=== PATIENT | male | born 1955 | race Caucasian/White ===

== ENCOUNTER 2021-01-13 08:04 | Outpatient (CLI) | payer BC, SELFPAY | END 2021-01-13 08:05 | disposition home or self-care (01) | LOC: ANHCOVIDVC 08:04 | PROVIDERS: PCP Family Medicine | DX: Z23 Encounter for immunization (principal) | CPT/HCPCS: 0001A; 91300 ==

== ENCOUNTER 2021-02-03 08:00 | Outpatient (CLI) | payer BC, SELFPAY | END 2021-02-03 08:01 | disposition home or self-care (01) | LOC: ANHCOVIDVC 08:00 | PROVIDERS: PCP Family Medicine | DX: Z23 Encounter for immunization (principal) | CPT/HCPCS: 0002A; 91300 ==

== ENCOUNTER 2021-02-11 08:39 | Outpatient (CLI) | payer BC, SELFPAY ==
--- NOTE | ~2021-02-11 | CT_ITS ---
EXAMINATION: CT soft tissue neck w con EXAM DATE: 02/11/2021 09:13 INDICATION: R59.0 - Localized enlarged lymph nodes . Soreness and tenderness left side of neck under jaw. TECHNIQUE: Spiral CT of the neck was performed following intravenous injection of 75 mL Omnipaque 350 . Axial, coronal and sagittal images were reviewed. The dose-length product (DLP) for this examinat ion was 621.89 mGy-cm. The exposure was tailored according to patient size (auto mA exposure control ), and iterative reconstruction (ASIR) was used as additional dose reduction technique. There is no prior study for comparison. 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 Left external jugular vein is equal caliber to the left internal jugular vein. Probably con genital appearance and unlikely related to patient's symptoms. The thyroid gland is unremarkable. The submandibular and parotid glands are symmetric. There is n o cervical lymphadenopathy. There are no masses identified. The superior mediastinum is unremarka ble. The airway is unremarkable. Parapharyngeal and pre-glottic fat planes are preserved. The o pacified vasculature is patent. Left vertebral artery is dominant. The orbits are unremarkable. Vis ualized sinuses and mastoid air cells are well aerated. Lung apices are clear. There is mild to mo derate cervical spondylosis. IMPRESSION: 1. Dilated anastomosis, varix between left internal and external jugular veins. Could be incidental congenital finding and unrelated to current symptoms. 2. Otherwise unremarkable CT neck exam, no lymphadenopathy. Reviewed, dictated and finalized at location A. IMPRESSION: 1. Dilated anastomosis, varix between left internal and external jugular veins . Could be incidental congenital finding and unrelated to current symptoms. 2. Otherwise unremarkable CT neck exam, no lymphadenopathy.
== END 2021-02-11 08:40 | disposition home or self-care (01) ==
PROVIDERS: PCP Family Medicine; Visit Provider Nurse Practitioner
DX: R59.0 Localized enlarged lymph nodes (principal)
CPT/HCPCS: 70491; Q9967

== ENCOUNTER 2022-07-03 17:37 | Emergency (ER) | payer BC, SELFPAY ==
--- NOTE | ~2022-07-03 | CT_ITS ---
EXAMINATION: CT abdomen pelvis w con DATE: 07/03/2022 18:39 INDICATION: Right lower quadrant pain TECHNIQUE: Computed tomography (CT) of the abdomen and pelvis was performed with 100 mL Omnipaque-350 intravenous contrast. Automated exposure control and iterative reconstruction technique were employe d. The dose-length product was 653.77 mGy-cm. COMPARISON: 05/04/2006. FINDINGS: Lower thorax: Minimal bibasilar scarring. Coronary artery calcification. Liver: Subcentimeter left lobe hypodensity, too small to characterize Biliary/Gallbladder: Gallbladder is normal. No bile duct dilation. Pancreas: No mass or duct dilation. Spleen: Normal. Adrenals:No mass. Kidneys: Simple midpole cyst. Bilateral hypodensities that are too small to characterize. GI tract: No small or large bowel dilation. Normal appendix. Mesentery/Peritoneum: No ascites, mass, or free air. Retroperitoneum: No mass. Pelvis: Bladder wall thickening likely secondary to outlet compromise from prostatomegaly. Soft Tissues: Soft tissues and body wall unremarkable. Bones: No acute osseous finding. IMPRESSION: No acute abdominopelvic process detected. Reviewed, dictated and finalized at location K.
--- NOTE | ~2022-07-03 | XR_ITS ---
EXAMINATION: XR chest 1V portable Exam Date/Time: 07/03/2022 17:45 CDT HISTORY: LT SIDED CP X FEW DAYS PAIN IS OFF AND ON OFTEN,WORSE TODAY Comparison: 10/29/2015. RESULT: Lines, tubes, and devices: None. Lungs and pleura: Clear. Cardiomediastinal silhouette: Stable. Other: No acute osseous or upper abdominal finding. IMPRESSION: No acute cardiopulmonary process. Reviewed, dictated and finalized at location K.
--- NOTE | 2022-07-03 17:39 | ECG_ITS ---
Measurements Intervals [place] Rate: 91 P: 70 RI: 165 QRS: 60 QRSD: 109 T: -30 QT: 346 QTc: 426 Interpretive Statements SINUS RHYTHM DELAYED PRECORDIAL R/S TRANSITION BORDERLINE ST-T WAVE ABNORMALITY- INF/LAT LEADS BASELINE ARTIFACT- I, III, AVL BORDERLINE ECG NO PREVIOUS ECG AVAILABLE FOR COMPARISON Electronically Signed On 07-03-2022 19:59:24 CDT by Aidan Bearden D.O.
[2022-07-03 17:44] VITALS: BP 147/91; PULSE 91; RESP 20; TEMP 36.4; O2SAT 95
[2022-07-03 17:53] VITALS: O2SAT 97
[2022-07-03 18:11] LABS: Basophils Absolute Auto 0.1 K/mm3 (0.0-0.1); Eosinophils Absolute Auto 0.2 K/mm3 (0-0.3); Hematocrit 48.1 % (42.0-52.0); Hemoglobin 17.2 g/dL (14.0-18.0); Immature Granulocyte Absolute 0.02 K/mm3 (0.00-0.031); Immature Granulocyte Percent A 0.2 % (0-0.5); Lymphocytes Absolute Auto 2.72 K/mm3 (0.9-3.2); Lymphocytes Percent Auto 29.9 % (18.3-44.2); Mean Corpuscular HGB Conc 35.8 g/dl (32-36); Mean Corpuscular Hemoglobin 32.3 pg (26-34); Mean Corpuscular Volume 90.4 fl (80-100); Monocytes Absolute Auto 0.9 K/mm3 (0.1-0.6); Monocytes Percent Auto 9.5 % (2.6-8.5); Neutrophils Absolute Auto 5.2 K/mm3 (1.3-6.7); Neutrophils Percent Auto 57.4 % (45.5-73.1); Platelet Count Result 219 k/mm3 (150-375); Red Blood Count 5.32 M/mm3 (4.6-6.20); Red Cell Distribution Width 12.8 % (11.5-14.5); White Blood Count 9.1 K/mm3 (4.5-10.0)
--- NOTE | 2022-07-03 18:13 | ED.GENADULT ---
HPI - General Adult General Chief complaint: Chest Pain Stated complaint: chest pain, palpitations Time Seen by Provider: 07/03/22 17:46 Source: patient and family Mode of arrival: ambulatory Limitations: no limitations History of Present Illness HPI narrative: 66 years old white male presents to the ED with intermittent pain at the right lower quadrant associated with bloating and nausea, also associated with intermittent palpitation and left chest pain. Patient reported history of palpitation for years and currently on medication for it. Also history of IBS. He denies any fever, chills, nausea, vomiting. Currently patient denied any palpitation or chest pain, just right lower quadrant pain Related Data Home Medications Medication Instructions Recorded Confirmed flecainide 50 mg tablet 50 mg PO Q12H 11/02/20 12/28/21 Allergies Allergy/AdvReac Type Severity Reaction Status Date / Time No Known Allergies Allergy Verified 07/03/22 17:57 Review of Systems Review of Systems: All systems reviewed & are unremarkable except as noted in HPI and below PMFSH Past Medical History Medical History Dyslipidemia Elevated PSA History of melanoma Irritable bowel syndrome Symptomatic PVCs Surgical History Surgical History History of melanoma excision 10/2015 - left lateral arm Family History Family History Other Family history of cardiovascular disease Social History Social History Smoking status: Never smoker Second hand tobacco smoke exposure: No Alcohol intake: current Exam Narrative: General appearance: Well-developed, well-nourished Skin: Normal color Head: Normocephalic, nontraumatic Eyes: Clear conjunctiva ENT: Oropharynx normal, ears normal, nose normal Neck: Supple, nontender Chest and respiratory: Airway patent, no respiratory distress, no accessory muscle use Heart: Regular rate/rhythm Abdomen: Soft, moderate tenderness with deep palpation of the right lower quadrant, no guarding or rebound no organomegaly, quiet bowel sounds Vascular: Normal peripheral pulses, normal capillary refill. 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, no gross motor deficit Course Vital Signs Vital signs: Vital Signs Temperature 36.4 C 07/03/22 17:44 Pulse Rate 91 07/03/22 17:44 Respiratory Rate 20 07/03/22 17:44 Blood Pressure 147/91 H 07/03/22 17:44 Pulse Oximetry 95 07/03/22 17:44 Oxygen Delivery Room Air 07/03/22 17:44 Temperature 36.4 C 07/03/22 17:44 Pulse Rate 74 07/03/22 18:23 Respiratory Rate 20 07/03/22 17:44 Blood Pressure 147/91 H 07/03/22 17:44 Pulse Oximetry 97 07/03/22 17:53 Oxygen Delivery Room Air 07/03/22 17:53 Medical Decision Making Vital Signs Vital Signs: Vital Signs Temperature 36.4 C 07/03/22 17:44 Pulse Rate 91 07/03/22 17:44 Respiratory Rate 20 07/03/22 17:44 Blood Pressure 147/91 H 07/03/22 17:44 Pulse Oximetry 95 07/03/22 17:44 Oxygen Delivery Room Air 07/03/22 17:44 Temperature 36.4 C 07/03/22 17:44 Pulse Rate 74 07/03/22 18:23 Respiratory Rate 20 07/03/22 17:44 Blood Pressure 147/91 H 07/03/22 17:44 Pulse Oximetry 97 07/03/22 17:53 Oxygen Delivery Room Air 07/03/22 17:53 Lab Data Result diagrams: 07/03/22 18:05 07/03/22 18:05 Labs: Lab Results 07/03/22 07/03/22 07/03/22 Range/Units 18:0
[2022-07-03] MEDS: SODIUM CHLORIDE 0.9% IV 1,000 ML 999 ML IV CONT (18:18)
[2022-07-03 18:23] VITALS: PULSE 74
[2022-07-03 18:26] LABS: Alanine Aminotransferase 39 U/L (6-50); Albumin Level 4.6 g/dL (3.5-5.1); Alkaline Phosphatase 90 U/L (38-126); Anion Gap 9 mmol/L (8-16); Aspartate Amino Transferase 28 U/L (17-59); Bilirubin,Total 0.7 mg/dL (0.2-1.3); Blood Urea Nitrogen 14 mg/dL (9-20); Calcium 10.1 mg/dL (8.4-10.2); Carbon Dioxide 29 mmol/L (22-30); Chloride 101 mmol/L (98-107); Estimated CRCL calculation 73 ml/min; Estimated Glomerular Filt Rate > 60; Glucose 108 mg/dL (65-110); Lipase 44 U/L (23-300); Magnesium 2.1 mg/dL (1.6-2.3); Potassium 3.7 mmol/L (3.4-5.0); Sodium 139 mmol/L (137-145)
[2022-07-03 18:31] LABS: Prothrombin Time 12.9 Seconds (11.1-14.7)
[2022-07-03 18:32] LABS: Partial Thromboplastin Time 30.4 SECONDS (22.3-36.8)
[2022-07-03 18:35] LABS: Appearance Urine Clear (Clear); Bilirubin Urine Negative (Negative); Blood Urine Negative (Negative); Color Urine Yellow (Yellow); Glucose Urine UA Negative (Negative); Ketones Urine Negative (Negative); Leukocyte Esterase Ur Trace LEU/UL (Negative); Nitrate Urine Negative (Negative); Protein Urine Negative (Negative); Specific Grav Ur <= 1.005 (1.001-1.035); pH Urine 5.5 (5.0-9.0)
[2022-07-03 18:37] LABS: Troponin I < 0.012 ng/mL (0.000-0.034)
[2022-07-03 18:45] LABS: Add Urine Microscopic? YES; RBC Urine 0-2 /hpf (0-2)
[2022-07-03 18:46] LABS: WBC Urine 0-3 /hpf (0-3)
[2022-07-03 18:47] LABS: Bacteria Urine Trace /hpf
[2022-07-03 19:19] VITALS: BP 147/92; PULSE 79; RESP 21; O2SAT 97
--- NOTE | 2022-07-03 19:19 | PC.NURSE ---
Assumed care of pt at this time. Pt alert and upright on stretcher, updated on POC
[2022-07-03 19:32] VITALS: BP 160/91; PULSE 78; RESP 18; O2SAT 99
== END 2022-07-03 19:34 | disposition home or self-care (01) ==
PROVIDERS: Emergency Medicine; Emergency Provider Emergency Medicine; PCP Family Medicine
DX: R10.31 Right lower quadrant pain (principal); R07.9 Chest pain, unspecified; R00.2 Palpitations; E78.5 Hyperlipidemia, unspecified; K58.9 Irritable bowel syndrome, unspecified; Z85.820 Personal history of malignant melanoma of skin; R94.31 Abnormal electrocardiogram [ECG] [EKG]
CPT/HCPCS: 36415; 71045; 74177; 80053; 81001; 83690; 83735; 84484; 85025; 85610; 85730; 93005; 96360; 99284; J7030; Q9967

== ENCOUNTER 2022-08-02 08:01 | Outpatient (CLI) | payer BC, SELFPAY ==
[2022-08-02 19:17] LABS: Cholesterol 185 mg/dL (0-200); HDL Direct 43 mg/dL; Triglycerides 127 mg/dL (<150)
[2022-08-02 19:29] LABS: LDL Cholesterol Direct 109 mg/dL
[2022-08-02 19:51] LABS: Vitamin D 25 Hydroxy 63.8 ng/mL
== END 2022-08-02 08:02 | disposition home or self-care (01) ==
LOC: ANHGOSHLAB 08:03
PROVIDERS: PCP Family Medicine; Visit Provider Nurse Practitioner
DX: E78.5 Hyperlipidemia, unspecified (principal); E55.9 Vitamin D deficiency, unspecified
CPT/HCPCS: 36415; 80061; 82306

== ENCOUNTER 2022-08-23 07:53 | Outpatient (CLI) | payer BC, SELFPAY ==
[2022-08-23 20:27] LABS: Prostate Specific Antigen 6.1 ng/mL (< OR = 4.0)
[2022-08-28 08:18] LABS: TTG IGA AB <1.0
[2022-08-28 08:19] LABS: Gliadin AB, IgG <1.0
== END 2022-08-23 07:54 | disposition home or self-care (01) ==
LOC: ANHGOSHLAB 07:54
PROVIDERS: PCP Family Medicine; Visit Provider Nurse Practitioner
DX: N40.0 Benign prostatic hyperplasia without lower urinary tract symptoms (principal); R00.2 Palpitations; R12 Heartburn; R14.0 Abdominal distension (gaseous); Z12.11 Encounter for screening for malignant neoplasm of colon
CPT/HCPCS: 36415; 83516; 84153; 84443

== ENCOUNTER 2022-09-08 00:24 | Day surgery (SDC) | payer BC, SELFPAY ==
[2022-08-31 09:57] VITALS: BMI 29.6
[2022-09-08 09:19] VITALS: BP 155/84; PULSE 83; RESP 16; TEMP 36.2; O2SAT 97
--- NOTE | 2022-09-08 09:22 | PM.HPGS ---
History of Present Illness History of Present Illness Consent: Risks, benefits, and alternatives have been discussed and questions answered. Patient agrees to proceed with procedure. Chief complaint: abdominal distension and heartburn Narrative: Hernandez Guevara is a 66 year old male states that over the last 6 months he has been having worsening abdominal bloating usually almost immediately after eating with visible of abdominal distension-he says when he gets this sensation he will have heart palpitations that are the most bothersome.? ? Cannot pinpoint any specific trigger foods as it occurs with anything he eats or drinks even with water.? He will have heartburn intermittently.? He does state that he tried [id number] omeprazole 20 mg daily for 2 weeks and felt like symptoms have somewhat improved.?? Review of Systems Review of Systems: All systems reviewed & are unremarkable except as noted in HPI and below PMFSH Past Medical History Medical History Abnormal radiologic findings on diagnostic imaging of renal pelvis, ureter, or bladder Colon cancer screening Dyslipidemia Elevated PSA Enlarged prostate Heart palpitations Heartburn History of melanoma Irritable bowel syndrome Obesity Postprandial abdominal bloating Symptomatic PVCs Vitamin D deficiency Surgical History Surgical History History of melanoma excision 10/2015 - left lateral arm Family History Family History Other Family history of cardiovascular disease Social History Social History Social History: Caffeine-occasional soda Smoking status: Never smoker Second hand tobacco smoke exposure: No Alcohol intake: current Drinks per week: 5 Alcohol use details: wine Substance use type: does not use Living arrangements: with family Spiritual care concerns: No Meds Home Medications and Allergies Home Medications Medication Instructions Recorded Confirmed Type flecainide 50 mg tablet 50 mg PO Q12H 11/02/20 08/31/22 History cholecalciferol (vitamin D3) 1,250 1,250 mcg PO WEEKLY #14 caps 01/02/22 08/31/22 Rx mcg (50,000 unit) capsule atorvastatin 40 mg tablet (Lipitor) 40 mg PO DAILY #90 tabs 07/26/22 08/31/22 Rx omeprazole 40 mg capsule,delayed 40 mg PO DAILY #30 caps 08/11/22 08/31/22 Rx release Allergies Allergy/AdvReac Type Severity Reaction Status Date / Time No Known Allergies Allergy Verified 09/08/22 09:15 Vital Signs Vital Signs - 24 hr 09/08/22 09:19 Temperature 36.2 C L Pulse Rate 83 Respiratory Rate 16 Blood Pressure 155/84 H Pulse Oximetry 97 Oxygen Delivery Room Air Exam Const: General: alert Orientation/consciousness: patient oriented x3 Resp: Auscultation: clear to auscultation bilaterally Cardio: Rhythm: regular rhythm GI: GI Palp: Yes Soft to palpation and No Tenderness to palpation present (GI) Neuro: General: patient oriented x3 Assessment and Plan Assessment and plan (1) Postprandial abdominal bloating: Code(s): R14.0 - Abdominal distension (gaseous) Status: Acute Assessment and Plan: EGD with possible biopsy or dilatation or cautery.
[2022-09-08] MEDS: LACTATED RINGERS 1,000 ML 150 ML IV CONT (09:26)
--- NOTE | 2022-09-08 09:35 | WPDANESEPPF ---
Anes - Initial Pre Proc Eval Procedure: Operation Date: 09/08/22 10:30 Proposed Procedures p Esophagogastroduodenoscopy EGD - Mickey Sullivan MD Date/Time: 09/08/22 09:35 Surgeon: Mickey Sullivan MD Pre Op Diagnosis: abdominal distension and heartburn Patient Data Age: 66 Gender: M Height: 1.75 m Weight: 89.9 kg Last Vital Signs Temp 36.2 C L 09/08/22 09:19 Pulse 83 09/08/22 09:19 Resp 16 09/08/22 09:19 BP 155/84 H 09/08/22 09:19 Pulse Ox 97 09/08/22 09:19 O2 Del Method Room Air 09/08/22 09:19 Allergies Allergy/AdvReac Type Severity Reaction Status Date / Time No Known Allergies Allergy Verified 09/08/22 09:15 Home Medications Medication Instructions Recorded Confirmed Type flecainide 50 mg tablet 50 mg PO Q12H 11/02/20 09/08/22 History cholecalciferol (vitamin D3) 1,250 1,250 mcg PO WEEKLY #14 caps 01/02/22 09/08/22 Rx mcg (50,000 unit) capsule atorvastatin 40 mg tablet (Lipitor) 40 mg PO DAILY #90 tabs 07/26/22 09/08/22 Rx omeprazole 40 mg capsule,delayed 40 mg PO DAILY #30 caps 08/11/22 09/08/22 Rx release Patient hx anesthesia problems: none Family hx anesthesia problems: none Results Review: All pre-operative results and documents have been reviewed as part of the pre-operative evaluation. [facility] Past Medical History Medical History Abnormal radiologic findings on diagnostic imaging of renal pelvis, ureter, or bladder Colon cancer screening Dyslipidemia Elevated PSA Enlarged prostate Heart palpitations Heartburn History of melanoma Irritable bowel syndrome Obesity Postprandial abdominal bloating Symptomatic PVCs Vitamin D deficiency Surgical History Surgical History History of melanoma excision 10/2015 - left lateral arm Family History Family History Other Family history of cardiovascular disease Social History Social History Social History: Caffeine-occasional soda Smoking status: Never smoker Second hand tobacco smoke exposure: No Alcohol intake: current Drinks per week: 5 Alcohol use details: wine Substance use type: does not use Living arrangements: with family Spiritual care concerns: No Anes - Eval Final PreProcedure Day of Procedure 09/08/22 09:35 Patient weight: overweight Heart: regular rate and rhythm Lungs: clear to auscultation Airway: Mallampati scale class II Neurological: alert and oriented Last oral intake: >/= 8 hours ASA classification: II Emergent: no Anesthetic plan: proceed Anesthesia type and monitoring: general GIVS and standard monitoring Results Review: All pre-operative results and documents have been reviewed as part of the pre-operative evaluation. Informed Consent: The patient's anesthetic plan and its attendant risks and benefits were discussed with the patient/family/POA. Questions were solicited and answers provided to the satisfaction of the patient/family/POA.
[2022-09-08] MEDS: BENZOCAINE (*SP) 60 ML SPRAY CAN (HURRICAINE) 1 SPRAY MUCOUS MEM (09:54)
[2022-09-08 10:03] VITALS: BP 129/82; PULSE 74; RESP 16; O2SAT 100
[2022-09-08 10:13] VITALS: BP 135/91; PULSE 72; RESP 16; O2SAT 99
== END 2022-09-08 10:38 | disposition home or self-care (01) ==
PROVIDERS: PCP Family Medicine; Visit Provider Internal Medicine Gastroenterology
PROC: 0DJ08ZZ Inspection of Upper Intestinal Tract, Via Natural or Artificial Opening Endoscopic (ICD-10-PCS; CPT 43235; principal; 2022-09-08 10:30)
DX: R14.0 Abdominal distension (gaseous) (principal); E78.5 Hyperlipidemia, unspecified; N40.0 Benign prostatic hyperplasia without lower urinary tract symptoms; K58.9 Irritable bowel syndrome, unspecified; E55.9 Vitamin D deficiency, unspecified; Z85.820 Personal history of malignant melanoma of skin
CPT/HCPCS: 43239; 87081; J2704; J7120

== ENCOUNTER 2023-01-26 08:28 | Outpatient (CLI) | payer BC, SELFPAY ==
[2023-01-26 18:47] LABS: Basophils Absolute Auto 0.1 K/mm3 (0.0-0.1); Basophils Percent Auto 1.1 % (0.2-1.2); Eosinophils Absolute Auto 0.3 K/mm3 (0-0.3); Eosinophils Percent Auto 3.4 % (0-4.4); Hematocrit 50.1 % (42.0-52.0); Immature Granulocyte Absolute 0.03 K/mm3 (0.00-0.031); Immature Granulocyte Percent A 0.4 % (0-0.5); Lymphocytes Absolute Auto 2.88 K/mm3 (0.9-3.2); Lymphocytes Percent Auto 36.6 % (18.3-44.2); Mean Corpuscular HGB Conc 33.9 g/dl (32-36); Mean Corpuscular Hemoglobin 31.5 pg (26-34); Mean Corpuscular Volume 92.9 fl (80-100); Mean Platelet Volume 10.3 fl (7.4-10.4); Monocytes Absolute Auto 0.8 K/mm3 (0.1-0.6); Monocytes Percent Auto 10.2 % (2.6-8.5); Neutrophils Absolute Auto 3.8 K/mm3 (1.3-6.7); Neutrophils Percent Auto 48.3 % (45.5-73.1); Platelet Count Result 215 k/mm3 (150-375); Red Blood Count 5.39 M/mm3 (4.6-6.20); Red Cell Distribution Width 12.9 % (11.5-14.5); White Blood Count 7.9 K/mm3 (4.5-10.0)
[2023-01-26 21:23] LABS: Alanine Aminotransferase 46 U/L (6-50); Albumin Level 4.8 g/dL (3.5-5.1); Alkaline Phosphatase 98 U/L (38-126); Anion Gap 13 mmol/L (8-16); Aspartate Amino Transferase 31 U/L (17-59); Bilirubin,Total 0.8 mg/dL (0.2-1.3); Blood Urea Nitrogen 14 mg/dL (9-20); Calcium 10.3 mg/dL (8.4-10.2); Carbon Dioxide 27 mmol/L (22-30); Chloride 103 mmol/L (98-107); Cholesterol 213 mg/dL (0-200); Estimated Glomerular Filt Rate > 60; Glucose 72 mg/dL (65-110); HDL Direct 49 mg/dL; Potassium 4.7 mmol/L (3.4-5.0); Sodium 143 mmol/L (137-145); Triglycerides 123 mg/dL (<150)
[2023-01-26 21:34] LABS: LDL Cholesterol Direct 112 mg/dL
== END 2023-01-26 08:29 | disposition home or self-care (01) ==
LOC: ANHGOSHLAB 08:28
PROVIDERS: PCP Family Medicine; Visit Provider Nurse Practitioner
DX: E78.5 Hyperlipidemia, unspecified (principal); E55.9 Vitamin D deficiency, unspecified
CPT/HCPCS: 36415; 80053; 80061; 82306; 85025

== ENCOUNTER 2023-10-15 15:49 | Outpatient (CLI) | payer BC, SELFPAY ==
--- NOTE | ~2023-10-15 | CT_ITS ---
EXAMINATION: CT abdomen pelvis wo con DATE: 10/15/2023 16:12 INDICATION: Right flank pain TECHNIQUE: Computed tomography (CT) of the abdomen and pelvis was performed without intravenous contr ast. The dose-length product was 674.73 mGy-cm. Automated exposure control and iterative reconstructi on technique were employed. COMPARISON: CT dated 07/03/2022. FINDINGS: There is bilateral lower lobe atelectasis. Heart size normal. Small hiatal hernia. No signi ficant pleural or pericardial effusion. Enlarged prostate gland. Normal appendix. The liver, spleen, pancreas, adrenal glands are unremarkable. There is an accessory splenule. Right k idney is unremarkable. There is a left renal cyst measuring 3.3 cm. There is atherosclerosis without aneurysm. There is increase number of mesenteric and retroperitoneal lymph nodes, likely reactive. Ga llbladder is contracted. No free air or free fluid. No focal lytic or blastic lesions. Mild lumbar sp ondylosis. IMPRESSION: 1. Enlarged prostate gland. 2: No acute abdominal abnormality. No findings to account for patient's symptoms. 3: Mildly increased number of mesenteric and retroperitoneal lymph nodes, likely reactive. Reviewed, dictated and finalized at location A. [facility] IMPRESSION: 1. Enlarged prostate gland. 2: No acute abdominal abnormality. No findings to account for patient's symptom s. 3: Mildly increased number of mesenteric and retroperitoneal lymph nodes, likel y reactive.
== END 2023-10-15 15:50 | disposition home or self-care (01) ==
PROVIDERS: PCP Family Medicine
DX: R10.9 Unspecified abdominal pain (principal); N40.0 Benign prostatic hyperplasia without lower urinary tract symptoms
CPT/HCPCS: 74176

== ENCOUNTER 2024-06-19 10:17 | Outpatient (CLI) | payer MEDICARE, SELFPAY ==
[2024-06-19 13:33] LABS: Basophils Absolute Auto 0.1 K/mm3 (0.0-0.1); Basophils Percent Auto 1.1 % (0.2-1.2); Eosinophils Absolute Auto 0.2 K/mm3 (0-0.3); Eosinophils Percent Auto 2.9 % (0-4.4); Hematocrit 49.8 % (42.0-52.0); Hemoglobin 17.3 g/dL (14.0-18.0); Immature Granulocyte Absolute 0.02 K/mm3 (0.00-0.031); Immature Granulocyte Percent A 0.3 % (0-0.5); Lymphocytes Absolute Auto 2.97 K/mm3 (0.9-3.2); Lymphocytes Percent Auto 37.5 % (18.3-44.2); Mean Corpuscular HGB Conc 34.7 g/dl (32-36); Mean Corpuscular Hemoglobin 32.6 pg (26-34); Mean Corpuscular Volume 93.8 fl (80-100); Mean Platelet Volume 10.5 fl (7.4-10.4); Monocytes Absolute Auto 0.7 K/mm3 (0.1-0.6); Monocytes Percent Auto 9.2 % (2.6-8.5); Neutrophils Absolute Auto 3.9 K/mm3 (1.3-6.7); Platelet Count Result 241 k/mm3 (150-375); Red Blood Count 5.31 M/mm3 (4.6-6.20); White Blood Count 7.9 K/mm3 (4.5-10.0)
[2024-06-19 14:11] LABS: Alanine Aminotransferase 43 U/L (6-50); Albumin Level 4.6 g/dL (3.5-5.1); Alkaline Phosphatase 86 U/L (38-126); Anion Gap 9 mmol/L (4-12); Aspartate Amino Transferase 47 U/L (17-59); Bilirubin,Total 0.9 mg/dL (0.2-1.3); Blood Urea Nitrogen 16 mg/dL (9-20); Calcium 9.6 mg/dL (8.4-10.2); Carbon Dioxide 31 mmol/L (22-30); Chloride 100 mmol/L (98-107); Cholesterol 172 mg/dL (0-200); Estimated Glomerular Filt Rate > 60; Glucose 89 mg/dL (65-110); HDL Direct 49 mg/dL; Potassium 4.6 mmol/L (3.4-5.0); Sodium 140 mmol/L (137-145); Triglycerides 97 mg/dL (<150)
[2024-06-19 14:22] LABS: LDL Cholesterol Direct 92 mg/dL
[2024-06-19 18:02] LABS: Vitamin D 25 Hydroxy 14.4 ng/mL
== END 2024-06-19 10:18 | disposition home or self-care (01) ==
PROVIDERS: PCP Family Medicine; Visit Provider Nurse Practitioner Family
DX: E78.5 Hyperlipidemia, unspecified (principal); E55.9 Vitamin D deficiency, unspecified; R00.2 Palpitations
CPT/HCPCS: 36415; 80053; 80061; 82306; 84443; 85025

== ENCOUNTER 2024-09-19 09:45 | Emergency (ER) | payer MEDICARE, SELFPAY ==
--- NOTE | 2024-09-19 09:50 | ECG_ITS ---
Test Date: 2024-09-19 09:58:37 Measurements Intervals [place] Rate: 111 P: 73 TN: 171 QRS: 62 QRSD: 110 T: -13 QT: 341 QTc: 464 Interpretive Statements SINUS TACHYCARDIA WITH OCCASIONAL SUPRAVENTRICULAR PREMATURE COMPLEXES POSSIBLE LEFT ATRIAL ENLARGEMENT DELAYED PRECORDIAL R/S TRANSITION MINNIMAL Q WAVES- INFERIOR LEADS BORDERLINE ST-T WAVE ABNORMALITY- INF/LAT LEADS BASELINE ARTIFACT- I, II, III, AVR, AVL, AVF, V1 ABNORMAL ECG No previous ECG available for comparison Electronically Signed On 09-19-2024 10:03:55 IT SOFTWARE ENGINEER by Aidan Bearden D.O.
--- NOTE | 2024-09-19 09:51 | ED.ARRPALP ---
HPI - Arrhythmia/Palpitations General Chief Complaint: Nausea/Vomiting/Diarrhea Stated Complaint: heart racing Time Seen by Provider: 09/19/24 09:50 Source: patient Mode of arrival: ambulatory Limitations: no limitations History of Present Illness HPI narrative: Hernandez is a 68-year-old male patient presenting to the clinic today with complaints his heart racing and nausea since this morning. He reports he was drinking alcohol last night and became intoxicated. He drank approximately 10 oz of bourbon. Throughout the night and this morning he has been vomiting and started having diarrhea. Has been dry heaving this morning with very little emesis. Any time that he gets an upset stomach he develops heart palpitations. He denies any chest pain but has slight shortness of breath. Patient appear anxious. Related Data Allergies Allergy/AdvReac Type Severity Reaction Status Date / Time No Known Allergies Allergy Verified 09/19/24 10:00 Review of Systems Review of Systems: Pertinent positives per HPI. Patient denies any fever, chills, rash, headache, visual changes, dizziness, cough, runny nose, sore throat, chest pain, palpitations, constipation, abdominal pain, or any urinary issues. [facility] Past Medical History Medical History Abnormal radiologic findings on diagnostic imaging of renal pelvis, ureter, or bladder Chronic mid back pain Dyslipidemia Eczema of lower extremity Elevated PSA Enlarged prostate GERD (gastroesophageal reflux disease) Heart palpitations Heartburn History of melanoma (~2015) Irritable bowel syndrome Obesity Postprandial abdominal bloating Symptomatic PVCs Vitamin D deficiency Surgical History Surgical History History of melanoma excision 10/2015 - left lateral arm Family History Family History Other Family history of cardiovascular disease Social History Social History Social History: Caffeine-occasional soda Smoking status: Never smoker Second hand tobacco smoke exposure: No Alcohol intake: current Drinks per week: 5 Alcohol use details: wine Substance use type: does not use Lack of Transportation: No Lack of Food: Never True Current Housing: I Have Housing Concerned About Future Housing: No Difficulty Paying Gas/Electric Bills: No Difficulty Paying for Meds: No Currently Unemployed: No Education: Master's Degree or Higher Difficulty w/ Childcare or Family Care: No Living arrangements: with family Spiritual care concerns: No Comments At the time of my signature, I reviewed and agree with the nursing past medical, surgical, social, and family history. There is no relevant family history pertinent to the patient complaint. Exam Narrative: General: Well-developed, well nourished, appears anxious/acutely ill-appearing Head: Normocephalic, atraumatic Eyes: Pupils equally round and reactive to light bilaterally, EOM intact, sclera and conjunctive clear, no discharge, lids normal Ears: TMs intact and clear, ear canals clear, no drainage, grossly hearing normal. Nose: Nares patent, no discharge, no inflammation, no sinus tenderness. Mouth: Oropharynx without lesions or masses, good dentition, MM dry. Neck: Supple, trachea midline, no enlargement of anterior or posterior cervical nodes, no thyroid masses or goiter palpable. Cardio: Tachycardic rate and rhythm, s1 and s2 normal, no murmur appreciated. Resp: Clear to auscultation bilaterally anteriorly and posteriorly, no rhonchi, rales, wheezing or rubs Extremities: No deformity, no edema, no cyanosis, capillary refill less than 2 seconds, peripheral pulses palpable and strong. Integumentary: [place], warm, and dry, intact without lesion, no rashes. Abdomen: Soft, pliable, bowel sounds present in all quadrants, non-tender to palpation, no organomegly, no CVAT tenderness. Course Course Emergency Course: Portions of this record may have been created with voice recognition software. Level of Care: Express Care Visit Vital Signs Vital signs: Vital Signs Pulse Rate 111 H 09/19/24 10:01 Respiratory Rate 20 09/19/24 10:01 Blood Pressure 157/105 H 09/19/24 10:01 Pulse Oximetry 99 09/19/24 10:01 Temperature 36.8 C 09/19/24 10:05 Pulse Rate 96 09/19/24 11:38 Respiratory Rate 20 09/19/24 10:01 Blood Pressure 161/98 H 09/19/24 10:05 Pulse Oximetry 99 09/19/24 10:01 Vital signs reviewed MDM - Arrhythmia/Palpitations MDM Narrative Medical decision making narrative: At the time of visit patient is resting comfortably on the exam table. Patient appears to be nontoxic. EKG: EKG shows sinus tachycardia with occasional PVC. Heart rate is 111. No ST elevation or depression noted. Medications: Benadryl 50 mg and Zofran 4 mg ODT given in the clinic today Plan: Patient reports improvement of his symptoms after medications were given any had a p.o. challenge. Heart rate is 96 beats per minute and the palpitations have improved. Patient would like to be discharged home. Will send in prescription for Zofran. Supportive measures were discussed with the patient and they voiced understanding discharge instructions and agrees to treatment plan. Return precautions reviewed Differential Diagnosis Differential diagnosis: Likely palpitations, anxiety, sinus tachycardia, artial fibrillation, artial flutter, ventricular premature beats, supraventricular tachycardia and other (Dehydration) ECG Data EKG #1: Attestation: I personally reviewed and interpreted this ECG as follows: ECG completion date: 09/19/24 ECG completion time: 09:58 Prior ECG tracings: not available for review Interpretation: EKG shows sinus tachycardia with occasional PVC. Heart rates 111. No ST elevation or depression noted. Does show possible left atrial enlargement with a probable inferior myocardial infarction of indeterminate age. DE interval 171 milliseconds, QRS durations 110 milliseconds, QT-QTc 341-406 milliseconds, P-R-T axis is 73 62 -13 Discharge Plan Discharge Clinical Impression: Symptomatic PVCs, Heart palpitations, Acute nausea with nonbilious vomiting, Mild dehydration Patient Disposition: Home, Self-Care Condition: Stable Instructions: Antibiotic Form, Heart Palpitations (ED), Dehydration (ED), Acute Nausea and Vomiting (ED) Additional Instructions: Benadryl 50 mg IM and Zofran 4 mg ODT given in the clinic today We will send prescription for Zofran to the pharmacy Increase fluids and stay well hydrated Tylenol/motrin for pain/fever BRAT diet for diarrhea Clear liquids x 24 hours then advance as tolerated for nausea/vomiting Go to the ED if you develop a worsening in your condition- high fever not controlled by Tylenol or Motrin, dehydration, weakness, lethargy, shortness of breath, or chest pain. Follow up with your PCP in 3-5 days if symptoms persist. Prescriptions: New ondansetron 4 mg tablet,disintegrating 4 mg PO Q6H PRN (Reason: nausea and vomiting) 3 Days Qty: 12 0RF No Action amitriptyline 25 mg tablet 25 mg PO QHS Qty: 90 3RF flecainide 50 mg tablet 50 mg PO Q12H Qty: 90 0RF atorvastatin [Lipitor] 40 mg tablet 40 mg PO QHS Qty: 90 1RF Follow-up/Referrals: Adrien Richards MD [Primary Care Provider] - Time of Disposition: 11:40 Quality NIHSS Nursing Documentation ED NIHSS nursing documentation: reviewed/agree
[2024-09-19 10:01] VITALS: BP 157/105; PULSE 111; RESP 20; O2SAT 99
[2024-09-19 10:05] VITALS: BP 161/98; TEMP 36.8
[2024-09-19] MEDS: diphenhydrAMINE HCl INJ 50 MG/ML VIAL IM (10:12)
[2024-09-19] MEDS: ONDANSETRON HCL ODT 4 MG TABLET SUBLINGUAL (10:12)
[2024-09-19 10:43] VITALS: PULSE 101
[2024-09-19 11:38] VITALS: PULSE 96
== END 2024-09-19 11:45 | disposition home or self-care (01) ==
PROVIDERS: Emergency Provider Nurse Practitioner Family; PCP Family Medicine
DX: R00.2 Palpitations (principal); R11.2 Nausea with vomiting, unspecified; E86.0 Dehydration
CPT/HCPCS: 93005; 96372; 99213; A9270; G0463; J1200

== ENCOUNTER 2025-06-19 09:00 | Outpatient (CLI) | payer MEDICARE, SELFPAY ==
--- OUTSIDE RECORDS SUMMARY | 2025-06-19 09:03 | XMS_ITS | Clinical Summary ---
Author Organization [facility] Address [address] [place] [address] Care Team Providers Care Route Sales Delivery Driver Name Role Phone Unavailable Primary Care Provider Unavailabl e Source Comments [facility],non-owned Affiliates and Associated Physician Practices is amultiple site organization consisting of ambulatory clinics and hospital sitesin [place], [place], [place] and [place]. This disclosure is being madepursuant to the Care Everywhere program and may not contain all information available regarding this patient. 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 Gender Identity Not on file Sexual Orientation Not on file Plan of Treatment Health Maintenance Due Date Last Done Comments COLOGUARD (AGES 45-75) - COL ON CA SCREENING 1957 COLON MONITORING 1957 COLONOSCOPY - COLON CA SCREENING 1957 CT COLONOGRAPHY - COLON CA SCREENING 1957 Colorectal Cancer Screening 1957 FIT - COLON CA SCREENING 1957 FLEX SIG - COLON CA SCREENING 1957 LIPID TESTING 1957 HEPATITIS C SCREENING 11/13/1975 DTAP/TDAP/TD VACCINES (1 - Tdap) 1976 PNEUMOCOCCAL VACCINE 50+ (1 of 1 - PCV) 2007 ZOSTER VACCINE (1 of 2) 2007 COVID-19 VACCINE ( - 2023-2 5 season) 2024 DEPRESSION SCREENING 10/29/2024 MEDICARE AWV CALENDAR YEAR 2024 INFLUENZA VACCINE (#1) 2025 Respiratory Syncytial Virus (RSV) Vaccine Pt: or over 60 yrs (1 - 1-dose 75+ series) 2032 HEPATITIS B VACCINE Aged Out No longe r eligible based on patient's age to complete this topic HIB VACCINE Aged Out No longer eligi ble based on patient's age to complete this topic HPV VACCINE Aged Out No longer eligi ble based on patient's age to complete this topic MENINGOCOCCAL (Group B) VACC INE SHARED DECISION-MAKING Aged Out No longer eligibl e based on patient's age to complete this topic MENINGOCOCCAL GROUPS A/C/Y/W VACCINE Aged Out No longer eligible b ased on patient's age to complete this topic Insurance [facility] AETNA MEDICARE ADV SELF PAY NO INSURANCE Member Subscriber Plan / Payer (Ef fective for All Dates) Name:Hernandez Guevara Member ID:Not on file Relation to Subscriber:Not on file Name:HERNANDEZ GUEVARA Subscriber ID:Not on file (Home) Address: [place] [address] Payer ID:Not on file Group ID:Not on file Type:Self Pay Address: [place], [place]
--- OUTSIDE RECORDS SUMMARY | 2025-06-19 09:03 | XMS_ITS | Encounter Summary ---
Author Organization [facility] Address [address] [place] [address] Care Team Providers Care Bridge Ironworker Name Role Phone Unavailable Primary Care Provider Unavailabl e Encounter Details Date Type Department Care Team (Late st Contact Info) Description 06/17/2019 Lab Requisition [facility] [address] [place] [phone] Nicholas Hernandez MD [address] [place] [address] Social History Tobacco Use Types Packs/Day Years Used Date Smoking Tobacco: Never Assessed Sex and Gender Information Value Date Recorded Sex Assigned at Not on file 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 Gender Identity Not on file Sexual Orientation Not on file documented as of this encounter Plan of Treatment Not on file documented as of this encounter Procedures Procedure Name Priority Date/Time Associated Diagnosis Comments DERMATOPATHOLOGY Routine 06/16/2019 12:0 0 AM CDT documented in this encounter Results * DERMATOPATHOLOGY (06/16/2019 12:00 AM CDT) Case Report Dermatopathology Report Case: [id number] Authorizing Provider: Nicholas Hernandez MD Collected: 06/16/2019 12:00 AM Ordering Location: [facility] Received: 06/17/2019 10:45 AM Pathologist: Valentina Frazier MD Specimen: Skin, left great toenail 9 3:56 PM CDT DERMATOPATHOLOGY LABORATORY Final Diagnosis Specimen A. SKIN, left great toenail: ONYCHOMYCOSIS (B35.1) 9 3:56 PM CDT DERMATOPATHOLOGY LABORATORY at 1556 CDT Clinical History R/O onychomycosis. 3:56 PM CDT DERMATOPATHOLOGY LABORATORY Gross Description Specimen A: Received is one formalin filled container labeled with the patient's name and designated left great toenail. The specimen consists of a nail clipping measuring [id number]. 3:56 PM CDT DERMATOPATHOLOGY LABORATORY Microscopic Description Specimen A. SKIN, left great toenail: Sections show nail plate. Fungal hyphae are present on Periodic acid-Román (PAS) stained sections. 3:56 PM CDT DERMATOPATHOLOGY LABORATORY Disclaimer An external and internal positive and negative controls are appropriate for the histochemical, immunohistochemical and immunofluorescence stain(s) in this case (if any), except where stated explicitly. The performance characteristics of the stain(s) cited in this report were developed and its performance characteristic determined by the Dermatopathology Laboratory at [facility], directed by Dr. Vannessa Frazier. These tests need not be, and therefore are not, approved by the [place] Food and Drug Administration. The tests are used for clinical purposes. Billing Codes Specimen Charges Stain Charges 08319 1 10108 1 3:56 PM CDT DERMATOPATHOLOGY LABORATORY Embedded Images 3:56 PM CDT DERMATOPATHOLOGY LABORATORY Pathology/Cytolog y TISSUE SPECIMEN FROM SKIN / Unknown 06/16/2019 06/17/2019 10:45 AM CDT Nicholas Hernandez MD LAB - PATHOLOGY/CYTOLOGY ORD ERABLES Final Result DERMATOPATHOLOGY LABORATORY [facility] - Department of Dermatology [address] [place] [address], 5th Floor Lab [address] [phone] documented in this encounter Visit Diagnoses Not on filedocumented in this encounter
--- OUTSIDE RECORDS SUMMARY | 2025-06-19 09:03 | XMS_ITS | Clinical Summary ---
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 Gender Identity Not on file Sexual Orientation Not on file Plan of Treatment Health Maintenance Due Date Last Done Comments DTAP/TDAP/TD VACCINES (1 - Tdap) 1976 FIT-DNA Q 3 years 2002 FIT/FOBT Q 1 year 2002 Flex Sig/CT Colonography Q 5 years 2002 PNEUMOCOCCAL VACCINE 50+ YEARS (1 of 1 - PCV) 11/17/19 08 ZOSTER VACCINE (1 of 2) 2007 INFLUENZA VACCINE (#1) 2025 COLORECTAL SCREENING 08/11/2026 08/11/2016 Colorectal Cancer Screening 08/11/2026 RSV VACCINE (60+ or ) (1 - 1-dose 75+ series) 2032 Care Teams Power Shovel Operator Helper Relationship Specialty Start Date End Date Amado Silverio MD [address] [place] [phone] PCP - General Family Practice 06/10/19
--- OUTSIDE RECORDS SUMMARY | 2025-06-19 09:03 | XMS_ITS | Encounter Summary ---
Author Organization [facility] Address [address] [place] [address] Care Team Providers Care Customer Engineer Name Role Phone Amado Silverio Primary Care Provider [phone] Amado Silverio Primary Care Provider [phone] Ian Richards MD Primary Care Provider Amado Silverio Unavailable [phone] Nicholas Hernandez MD Unavailable [phone] Encounter Details Date Type Department Care Team (Late st Contact Info) Description 12/06/2016 Orders Only [facility] ProviderDev MD [address] [place] [address] Social History Tobacco Use Types Packs/Day Years Used Date Smoking Tobacco: Never Alcohol Use Standard Drinks/Week Comments Yes 0 (1 standard drink = 0.6 oz pur e alcohol) Sex and Gender Information Value Date Recorded Sex Assigned at Not on file 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 us Historical Provider [facility] SAM RASHID Final Result documented in this encounter Visit Diagnoses Not on filedocumented in this encounter Care Teams Customer Engineer Relationship Specialty Start Date End Date Amado Silverio [address] [place] [address] PCP - General 01/26/17 04/01/18 Amado Silverio [address] [place] [place] [address] PCP - General 06/30/16 01/25/17 Ian Richards MD [address] [place] [address] PCP - General Family Practice 04/02/18 Amado Silverio [address] [place] [address] Consulting Physician Internal Medicine 05/08/18 Nicholas Hernandez MD [address] [place] [address] Referring Physician Dermatology 05/08/18 documented as of this encounter
--- OUTSIDE RECORDS SUMMARY | 2025-06-19 09:03 | XMS_ITS | Clinical Summary ---
Author Organization [facility] [address] Address [address] [place] [address] Care Team Providers Care Supervisor Shipping Name Role Phone Ian Richards MD Primary Care Provider Amado Silverio Unavailable [phone] Nicholas Hernandez MD Unavailable [phone] Allergies No known active allergies Medications atorvastatin (LIPITOR) 40 mg tablet Take 1 tablet (40 mg total) by mouth daily 2 Active amitriptyline (ELAVIL) 25 mg tablet Take 1 tablet (25 mg total) by mouth nightly 3 Active flecainide (TAMBOCOR) 50 mg tabletIndications :Atrial premature contractions Take 1 tablet (50 mg total) by mouth 2 (two) times a day 180 tablet 3 5 Active Active Problems Problem Noted Date Diagnosed Date 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/2023 Elevated blood pressure reading 02/15/2022 Family history of cerebral aneurysm 02/15/2022 Atypical chest pain 02/02/2021 Neck pain 02/02/2021 Medication monitoring encounter 11/05/2018 Atrial premature contractions 11/19/2017 PVC (premature ventricular contraction) 05/31/20 17 Anxiety 03/27/2017 Overview (03/30/2017): Anxiety Pure hypercholesterolemia 09/08/2016 Overview (02/01/2017): Hyperlipidemia, unspecified hyperlipidemia type Family history of sudden 09/08/2016 Overview (02/01/2017): Family history of sudden in brother Palpitations 09/08/2016 Overview (02/01/2017): Palpitations History of insertion of T-tube into biliary trac t 02/10/2016 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 Encounters Date Type Department Care Team Description 06/04/2025 8:30 AM CDT Office Visit [facility] Cardiology [address] [place] [phone] Bonnie Pierce NP Encounter for monitoring flecainide therapy (Primary Dx); Atrial premature contractions; Pure hypercholesterolemia from Last 3 Months Surgical History Surgery Date Site/Laterality Comments US UNLISTED PROCEDURE LYMPH SYSTEM 11/26/2015 N/A Medical History Medical History Date Comments Hypercholesterolemia High choles terol; Comments: TYW 09/08/2016 - Irritable bowel syndrome Irritab le bowel disease Hx Other Medical Skin CA (stage 2) Oct 2015; Comments: TYW 09/08/2016 - ELU 09/08/2016 -melanoma Cancer (HCC) Melanoma - surgery i n October 2015 Family History Medical History Relation Name Comments Heart attack Brother Juarez Other Brother Juarez Unknow (Sudden) ; ELU 09/08/2016 -Previously healthy. Sudden . Anuerysm Father Gene Aneurysm; ELU 1 11/08/2015 -Brain aneurysm. 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 Gender Identity Male 06/30/2020 10:58 AM CDT Sexual Orientation Straight 06/30/2020 10 :59 AM CDT Obstetrics History Last Filed Vital Signs Vital Sign Reading Time Taken Comments Blood Pressure 132/80 06/04/2025 8:45 AM CDT Pulse 85 06/04/2025 8:18 AM CDT Temperature 35.7 C (96.3 F) 05/10/2018 2:08 PM CDT Respiratory Rate 12 05/19/2019 10:30 AM CDT Oxygen Saturation 96% 06/04/2025 8:18 AM CDT Inhaled Oxygen Concentration - - Weight 91.2 kg (201 lb) 06/04/2025 8:18 AM CDT Height 175.3 cm (5' 9) 06/04/2025 8:18 AM CDT Body Mass Index 29.68 06/04/2025 8:18 AM CDT Plan of Treatment Health Maintenance Due Date Last Done Comments Colon Cancer Screening-Colonoscopy 1957 Depression Screening 1957 Fall Risk Assessment 1957 Hepatitis C Screening 1957 Prostate Cancer Screening-PSA 1957 Hepatitis B Screening 1975 Pneumococcal vaccine 65+ (1 of 1 - PCV) 2007 Zoster Vaccine (1 of 2) 2007 Well Visit 65+ 2022 Influenza Vaccine (#1) 2025 DTaP/Tdap/Td Vaccine (3 - Td or Tdap) 05/23/2026, 05/27/2006 Procedures Procedure Name Priority Date/Time Associated Diagnosis Comments ECG 12-LEAD Routine 06/04/2025 8:27 AM CDT Encounter for monitoring flecainide therapy from Last 3 Months Results * ECG 12 lead (06/04/2025 8:27 AM CDT) 06/04/2025 8:27 AM CDT Bonnie Pierce NP ECG ORDERABLES Final Res ult from Last 3 Months Insurance [employer] AETNA MEDICARE Care Teams Supervisor Shipping Relationship Specialty Start Date End Date Ian Richards MD PCP - General Family Practice 04/02/18 Amado Silverio [address] [place] [address] Consulting Physician Internal Medicine 05/08/18 Nicholas Hernandez MD [address] [place] [address] Referring Physician Dermatology 05/08/18
--- OUTSIDE RECORDS SUMMARY | 2025-06-19 09:03 | XMS_ITS | Encounter Summary ---
Author Organization [facility] Address [address] [place] [address] Care Team Providers Care Panel Monitor Name Role Phone Unavailable Primary Care Provider Unavailabl e Encounter Details Date Type Department Care Team (Late st Contact Info) Description 07/28/2020 Lab Requisition [facility] Derm[facility] Lab [address] [place] [phone] Nicholas Hernandez MD [address] [place] [address] Social History Tobacco Use Types Packs/Day Years Used Date Smoking Tobacco: Never Assessed Sex and Gender Information Value Date Recorded Sex Assigned at Not on file 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 Gender Identity Not on file Sexual Orientation Not on file documented as of this encounter Plan of Treatment Not on file documented as of this encounter Procedures Procedure Name Priority Date/Time Associated Diagnosis Comments DERMATOPATHOLOGY Routine 07/27/2020 12:0 0 AM CDT documented in this encounter Results * DERMATOPATHOLOGY (07/27/2020 12:00 AM CDT) Case Report Dermatopathology Report Case: [id number] Authorizing Provider: Nicholas Hernandez MD Collected: 07/27/2020 12:00 AM Ordering Location: [facility] Received: 07/28/2020 01:13 PM Pathologist: Michelle Chiang MD Specimen: Skin, left superior medial breast 0 3:25 PM CDT DERMATOPATHOLOGY LABORATORY Final Diagnosis Specimen A. SKIN, left superior medial breast: INTRADERMAL MELANOCYTIC NEVUS WITH CONGENITAL FEATURES (D22.9) 0 3:25 PM CDT DERMATOPATHOLOGY LABORATORY at 1524 CDT Clinical History R/O BCC, Reynoso's, SCC, LPLK, HAK. 0 3:25 PM CDT DERMATOPATHOLOGY LABORATORY Gross Description Specimen A: Received is one formalin filled container labeled with the patient's name and designated left superior medial breast. The specimen consists of a shave biopsy measuring [id number]. Jar 0. 0 3:25 PM CDT DERMATOPATHOLOGY LABORATORY Microscopic Description Specimen A. SKIN, left superior medial breast: There are nests of cytologically bland melanocytes within the dermis. Some of these melanocytes are concentrated around blood vessels and adnexal structures. 0 3:25 PM CDT DERMATOPATHOLOGY LABORATORY Disclaimer An external and internal positive and negative controls are appropriate for the histochemical, immunohistochemical and immunofluorescence stain(s) in this case (if any), except where stated explicitly. The performance characteristics of the stain(s) cited in this report were developed and its performance characteristic determined by the Dermatopathology Laboratory at [facility], directed by Dr. Vannessa Frazier. These tests need not be, and therefore are not, approved by the [place] Food and Drug Administration. The tests are used for clinical purposes. Billing Codes Specimen Charges Stain Charges 12547 1 0 3:25 PM CDT DERMATOPATHOLOGY LABORATORY Embedded Images 0 3:25 PM CDT DERMATOPATHOLOGY LABORATORY Pathology/Cytolog y TISSUE SPECIMEN FROM SKIN / Unknown 07/27/2020 07/28/2020 1:13 PM CDT Nicholas Hernandez MD LAB - PATHOLOGY/CYTOLOGY ORD ERABLES Final Result DERMATOPATHOLOGY LABORATORY [facility] - Department of Dermatology [address], [address] [place] [address], [facility] [phone] documented in this encounter Visit Diagnoses Not on filedocumented in this encounter
--- OUTSIDE RECORDS SUMMARY | 2025-06-19 09:03 | XMS_ITS | Encounter Summary ---
Author Organization [facility] Address [address] [place] [address] Care Team Providers Care Commercial Specialist Name Role Phone Unavailable Primary Care Provider Unavailabl e Encounter Details Date Type Department Care Team (Late st Contact Info) Description 09/03/2024 Lab Requisition [facility] - DermPath Lab [address] [place] [phone] Nicholas Hernandez MD [address] [place] [address] Social History Tobacco Use Types Packs/Day Years Used Date Smoking Tobacco: Never Assessed Sex and Gender Information Value Date Recorded Sex Assigned at Not on file Legal 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 Gender Identity Not on file Sexual Orientation Not on file documented as of this encounter Plan of Treatment Not on file documented as of this encounter Procedures Procedure Name Priority Date/Time Associated Diagnosis Comments DERMATOPATHOLOGY Routine 09/02/2024 3:33 AM BANK 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 documented in this encounter Results * DERMATOPATHOLOGY (09/02/2024 3:33 AM BANK 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) Case Report Dermatopathology Report Case: [id number] Authorizing Provider: Nicholas Hernandez MD Collected: 09/02/2024 03:33 AM Ordering Location: [facility] - Received: 09/03/2024 03:31 PM DermPath Lab Pathologist: Valentina Frazier MD Specimens: A) - Skin, top right shoulder B) - Skin, right upper back 4 2:59 PM BANK 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 DERMATOPATHOLOGY LABORATORY Final Diagnosis Specimen A. SKIN, top right shoulder: ACTINIC KERATOSIS, LICHENOID (L57.0) Specimen B. SKIN, right upper back: LICHEN PLANUS-LIKE KERATOSIS (BENIGN LICHENOID KERATOSIS) (L82.1) 4 2:59 PM [facility] DERMATOPATHOLOGY LABORATORY at 1459 BANK 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 Clinical History A: R/O SCCIS vs HAK vs dermatitis vs SCC B R/O SCCIS vs SCC 4 2:59 PM [facility] DERMATOPATHOLOGY LABORATORY Gross Description Specimen A: Received is one formalin filled container labeled with the patient's name and designated top right shoulder. The specimen consists of a shave biopsy measuring 12x7x2 mm. Jar 0. Specimen B: Received is one formalin filled container labeled with the patient's name and designated right upper back. The specimen consists of a shave biopsy measuring [id number] mm. Jar 0. 2:59 PM [facility] DERMATOPATHOLOGY LABORATORY Microscopic Description Specimen A. SKIN, top right shoulder: There is focal parakeratosis. The lower half of the epidermis shows disorderly maturation of keratinocytes with nuclear pleomorphism. The dermis shows a band-like, chronic inflammatory infiltrate with occasional apoptotic keratinocytes and some basal vacuolar alteration. Specimen B. SKIN, right upper back: The epidermis is mildly acanthotic. There is a lichenoid infiltrate with vacuolar changes of basilar keratinocytes and scattered necrotic keratinocytes. 4 2:59 PM [facility] DERMATOPATHOLOGY LABORATORY Disclaimer An external and internal positive and negative controls are appropriate for the histochemical, immunohistochemical and immunofluorescence stain(s) in this case (if any), except where stated explicitly. The performance characteristics of the stain(s) cited in this report were developed and its performance characteristic determined by the Dermatopathology Laboratory at [facility], directed by Dr. Vannessa Frazier. These tests need not be, and therefore are not, approved by the [place] Food and Drug Administration. The tests are used for clinical purposes. Billing Codes Specimen Charges Stain Charges 57692 44712 1 1 4 2:59 PM [facility] DERMATOPATHOLOGY LABORATORY Embedded Images 4 2:59 PM [facility] DERMATOPATHOLOGY LABORATORY Pathology/Cytology TISSUE SPECIMEN FROM SKIN / Unknown 09/02/2024 3:33 AM BANK 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 09/03/2024 3:31 PM BANK 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 Miscellaneous samples (specimen) TISSUE SPECIMEN FROM SKIN / Unknown 09/02/2024 3:33 AM BANK 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 09/03/2024 3:31 PM BANK 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 us Nicholas Hernandez MD LAB - PATHOLOGY/CYTOLOGY ORD ERABLES Final Result DERMATOPATHOLOGY LABORATORY [facility] - Department of Dermatology [facility] [address] [place] [address], [address] [phone] documented in this encounter Visit Diagnoses Not on filedocumented in this encounter
[2025-06-19 13:26] LABS: Hematocrit 51.3 % (42.0-52.0); Hemoglobin 17.4 g/dL (14.0-18.0); Immature Granulocyte Percent A 0.4 % (0-0.5); Lymphocytes Absolute Auto 2.82 K/mm3 (0.9-3.2); Mean Corpuscular HGB Conc 33.9 g/dl (32-36); Mean Corpuscular Hemoglobin 32.0 pg (26-34); Mean Corpuscular Volume 94.3 fl (80-100); Nucleated Red Blood Cells Absolute Auto 0.000 K/mm3 (0.0-0.012); Nucleated Red Blood Cells Perc 0.0 % (0.0-0.2); Platelet Count Result 258 k/mm3 (150-375); Red Blood Count 5.44 M/mm3 (4.6-6.20); White Blood Count 8.4 K/mm3 (4.5-10.0)
[2025-06-19 13:36] LABS: Alanine Aminotransferase 43 U/L (6-50); Albumin Level 4.5 g/dL (3.5-5.1); Alkaline Phosphatase 91 U/L (38-126); Anion Gap 7 mmol/L (4-12); Aspartate Amino Transferase 64 U/L (17-59); Bilirubin,Total 0.6 mg/dL (0.2-1.3); Blood Urea Nitrogen 15 mg/dL (9-20); Calcium 9.3 mg/dL (8.4-10.2); Carbon Dioxide 29 mmol/L (22-30); Chloride 103 mmol/L (98-107); Cholesterol 167 mg/dL (0-200); Estimated Glomerular Filt Rate > 60; Glucose 81 mg/dL (65-110); HDL Direct 51 mg/dL; Potassium 4.6 mmol/L (3.4-5.0); Sodium 139 mmol/L (137-145); Total Protein 8.0 g/dL (6.3-8.2); Triglycerides 69 mg/dL (<150); Uric Acid 5.3 mg/dL (3.5-8.5)
[2025-06-19 14:10] LABS: Thyroid Stimulating Hormone Reflex 2.100 uIU/mL (0.465-4.68)
== END 2025-06-19 09:01 | disposition home or self-care (01) ==
PROVIDERS: PCP Nurse Practitioner Family; Visit Provider Nurse Practitioner Family
DX: R00.2 Palpitations (principal); E78.5 Hyperlipidemia, unspecified; M79.644 Pain in right finger(s); E55.9 Vitamin D deficiency, unspecified
CPT/HCPCS: 36415; 80053; 80061; 82306; 84443; 84550; 85025

== ENCOUNTER 2025-07-10 14:33 | Emergency (ER) | payer MEDICARE, SELFPAY ==
[2025-07-10 14:40] VITALS: BP 147/89; PULSE 96; RESP 16; TEMP 36.4; O2SAT 96
--- NOTE | 2025-07-10 15:09 | ED.SKABFB ---
HPI - Skin/Abscess/Foreign Bdy General Chief complaint: Skin/Abscess/Foreign Body Stated complaint: JAW SWELLING/NUMBNESS Time Seen by Provider: 07/10/25 14:50 Source: patient and RN notes reviewed Mode of arrival: ambulatory Limitations: no limitations History of Present Illness HPI narrative: 69-year-old male presents Express Care complaining redness, swelling, and numbness there is left lower jaw for the last 2-3 days. Patient recently had dental work about 3 days ago for bridge in his left lower jaw since then he has noticed some redness, swelling, pain to left lower jaw. Patient called his dentist who recommended urgent care visit. Patient denies any pain with bending down, eating, so swallowing. Patient denies any difficulty breathing, and slurred speech, facial droop, focal weakness, vision changes, headaches, dizziness, lightheadedness, chest pain, nausea vomiting, diarrhea, or any other symptoms. Patient has a history of PVCs takes flecainide for it. Patient says he shaved his face daily with a razor. Related Data Home Medications ?Medication ?Instructions ?Recorded ?Confirmed ?Last Taken ?Type multivitamin (Daily Multi-Vitamin 1 tablet PO DAILY 11/06/24 06/19/25 11/09/24 History tablet) Allergies Allergy/AdvReac Type Severity Reaction Status Date / Time No Known Allergies Allergy Verified 07/10/25 15:00 Review of Systems Review of Systems: CONSTITUTIONAL: Denies fever, chills, or sweats. EYES: Denies visual changes, redness, or discharge. ENT: Denies rhinorrhea, congestion, sore throat, or otalgia. CARDIOVASCULAR: Denies chest pain, palpitations, or edema. RESPIRATORY: Denies cough or dyspnea. GASTROINTESTINAL: Denies abdominal pain, nausea, vomiting, or diarrhea. GENITOURINARY: Denies dysuria or hematuria. SKIN: Denies rash or itching. Positive for redness, swelling, pain. MUSCULOSKELETAL: Denies back pain, joint pain, or myalgia. NEUROLOGIC: Denies headache, numbness, or weakness. PSYCHIATRIC: Denies anxiety or depression. All other systems reviewed are negative, except as documented in HPI. [facility] Past Medical History Medical History Chronic mid back pain Eczema of lower extremity GERD (gastroesophageal reflux disease) Obesity Abnormal radiologic findings on diagnostic imaging of renal pelvis, ureter, or bladder Heart palpitations Heartburn Enlarged prostate Postprandial abdominal bloating Vitamin D deficiency Symptomatic PVCs Dyslipidemia Elevated PSA History of melanoma (~2015) Irritable bowel syndrome Surgical History Surgical History History of melanoma excision 10/2015 - left lateral arm Family History Family History Other Family history of cardiovascular disease Social History Social History Social History: Caffeine-occasional soda Smoking status: Never smoker Second hand tobacco smoke exposure: No Alcohol intake: current Drinks per week: 5 Alcohol use details: wine Substance use type: does not use Lack of Transportation: No Lack of Food: Never True Current Housing: I Have Housing Concerned About Future Housing: No Difficulty Paying Gas/Electric Bills: No Difficulty Paying for Meds: No Currently Unemployed: No Education: Master's Degree or Higher Difficulty w/ Childcare or Family Care: No Living arrangements: with family Additional living arrangements comments: [facility] Spiritual care concerns: No Comments At the time of my signature, I reviewed and agree with the nursing past medical, surgical, social, and family history. There is no relevant family history pertinent to the patient complaint. Exam Narrative: GENERAL: This is a well-nourished, well-developed adult, in no apparent distress. They are non ill-appearing, nontoxic appearing. HEAD: normocephalic, atraumatic. EYES: Sclera clear/white. Conjunctiva normal. Vision is grossly intact. Extraocular movements intact. Pupils PERRLA EARS: External ears normal, Hearing grossly intact. NOSE: External nose normal THROAT: Mucous membranes moist, posterior pharynx clear, without erythema or swelling. Uvula midline. OROPHARYNX: Good dentition. No gingivitis. No obvious swelling or redness. No pain. No trismus. Tongue is normal. Tongue Is midline. No pain or swelling of the tongue. NECK: Neck supple, mild tenderness with mild left-sided cervical lymphadenopathy, no masses or thyromegaly. CARDIOVASCULAR: Regular rate and rhythm without murmurs, gallops, or rubs. RESPIRATORY: Clear to auscultation. Breath sounds equal bilaterally. No wheezes, rales, or rhonchi. GASTROINTESTINAL: Abdomen soft, non-tender, nondistended. Bowel sounds are active. No hepato-splenomegaly, or palpable masses. No guarding. SKIN: Face: Left lower mandible is erythematous with papular pustular lesions present that her group. It is nontender. No area of fluctuance, no induration. Area of lesions measuring approximately 1.5 cm 1.5 cm. NEURO: awake, alert, and oriented to person, place and time. There were no obvious focal neurologic abnormalities. No slurred speech. No facial drooping. Cranial nerve 2-12 grossly intact. Strength 5/5 equal bilaterally. No pronator drift. No limb ataxia. EXTREMITIES: No joint tenderness, effusion, or edema noted. BACK: Nontender without deformity. No CVA tenderness. Course Course Emergency Course: Portions of this record may have been created with voice recognition software Level of Care: Express Care Visit Vital Signs Vital signs: Vital Signs Temperature 97.6 F 07/10/25 14:40 Pulse Rate 96 07/10/25 14:40 Respiratory Rate 16 07/10/25 14:40 Blood Pressure 147/89 H 07/10/25 14:40 Pulse Oximetry 96 07/10/25 14:40 Temperature 97.6 F 07/10/25 14:40 Pulse Rate 96 07/10/25 14:40 Respiratory Rate 16 07/10/25 14:40 Blood Pressure 147/89 H 07/10/25 14:40 Pulse Oximetry 96 07/10/25 14:40 Reviewed MDM - Skin/Abscess/Foreign Bdy MDM Narrative Medical decision making narrative: Likely patient has folliculitis. Will prescribe doxycycline along with the piercing ointment. Discussed physical exam findings. Advised supportive measures and signs/symptoms to go to the ER. Pt is appropriate for outpt treatment and f/u. Differential Diagnosis Differential diagnosis: Likely abscess of skin or subcutaneous tissue, cellulitis, impetigo and other (Folliculitis, dental infection, dental abscess) Critical Care Time Critical Care Time Critical Care Time: No Discharge Plan Discharge Clinical Impression: Folliculitis Patient Disposition: Home Condition: Stable Instructions: Antibiotic Form, Folliculitis (ED) Additional Instructions: Take doxycycline as directed. Please wear sunscreen if you are going to be outside while taking doxycycline. Apply mupirocin ointment as directed. Apply only to the affected areas. Wash her face daily mild soap and water. Follow-up with your PCP in 3-5 days. He developed worsening redness, swelling, pain, fevers, difficulty swallowing, difficulty breathing, difficulty opening your jaw, or any serious concerns please go to the ER immediately. Patient Language: Moroccan Prescriptions: New doxycycline monohydrate 100 mg capsule 100 mg PO BID 7 Days Qty: 14 0RF mupirocin calcium 2 % cream 1 applic topical BID 7 Days Qty: 30 0RF No Action amitriptyline 25 mg tablet 25 mg PO QHS Qty: 90 3RF multivitamin [Daily Multi-Vitamin] Tablet 1 tablet PO DAILY flecainide 50 mg tablet 50 mg PO Q12H Qty: 90 0RF atorvastatin [Lipitor] 40 mg tablet 40 mg PO QHS Qty: 90 1RF Follow-up/Referrals: Adrien Richards MD [Primary Care Provider, Family Practice] Time of Disposition: 15:02
== END 2025-07-10 15:16 | disposition home or self-care (01) ==
PROVIDERS: PCP Family Medicine
DX: L73.9 Follicular disorder, unspecified (principal); N40.0 Benign prostatic hyperplasia without lower urinary tract symptoms; E78.5 Hyperlipidemia, unspecified; K21.9 Gastro-esophageal reflux disease without esophagitis; E66.9 Obesity, unspecified; Z68.29 Body mass index [BMI] 29.0-29.9, adult; Z85.820 Personal history of malignant melanoma of skin
CPT/HCPCS: 99213; G0463